=== PATIENT | female | born 1980 | race Caucasian/White ===

== ENCOUNTER 2022-04-29 21:27 | Emergency (ER) | payer OTHER ==
[~2022-04-29] VITALS: Ht 149.9 cm; Wt 77.1 kg
--- NOTE | 2022-04-29 22:08 | NUR ---
DR Goldman in room. MSE in progress
--- NOTE | 2022-04-29 22:09 | NUR ---
Pt provided urine sample, sent to lab.
[2022-04-29 22:21] LABS: *BILIRUBIN,URIN NEGATIVE (NEGATIVE); *BLOOD, URINE NEGATIVE (NEGATIVE); *COLOR,URINE YELLOW (YELLOW); *KETONES,URINE NEGATIVE (NEGATIVE); *UROBILINOGEN,URINE 0.2 E.U./dl (NORMAL); LEUKOCYTE ESTERASE ,URINE NEGATIVE (NEGATIVE); NITRITE, URINE NEGATIVE (NEGATIVE); PH,URINE 5.5 (5.0-8.0); UGLUCOSE NEGATIVE (NEGATIVE)
[2022-04-29 22:28] LABS: *CLARITY,URINE HAZY (CLEAR); BACTERIA,URINE FEW /HPF (NONE SEEN); RBC,URINE 0-3 /HPF (0-3); SQUAMOUS EPITHELIAL CELL,UR MANY /HPF (NONE SEEN)
[2022-04-29 22:29] LABS: *URINE HCG, QUAL NEGATIVE (NEGATIVE)
[2022-04-29] MEDS ORDERED: DICYCLOMINE HCL LIQ 10 MG/5 ML UDC PO ONE (22:30)
[2022-04-29] MEDS ORDERED: ONDANSETRON ODT 4 MG TAB.RAPDIS SL ONE (22:30)
[2022-04-29] MEDS ORDERED: DICYCLOMINE HCL LIQ 10 MG/5 ML UDC ONE (22:30)
[2022-04-29] MEDS ORDERED: ONDANSETRON ODT 4 MG TAB.RAPDIS ONE (22:30)
[2022-04-29 22:35] LABS: HEMATOCRIT 36.4 % (31.2-41.9); MEAN CORPUSCULAR HEMOGLOBIN 28.4 uug (24.7-32.8); MEAN CORPUSCULAR VOLUME 85.1 fL (75.5-95.3); PLATELET COUNT (AUTO) 310 K/uL (179-408)
--- NOTE | 2022-04-29 22:38 | NUR ---
offered medicine as ordered pt declined at this time.
[2022-04-29 22:49] LABS: BILIRUBIN,TOTAL 0.4 mg/dL (0.2-1.0); CREATININE 0.9 mg/dL (0.6-1.3)
--- NOTE | 2022-04-29 23:01 | NUR ---
sheet metal technician is at the bedside.
[2022-04-29] MEDS ORDERED: DICY20TA11 PO (23:34)
[2022-04-29] MEDS ORDERED: ONDA4TAB5 PO (23:34)
--- NOTE | 2022-04-29 23:41 | NUR ---
Patient discharged to home in stable condition. Written and verbal after care instructions given. Patient verbalizes understanding of instructions. Stressed follow up or return to ER for worsening s/s. Patient is a/ox4, NAD noted. Patient is accompanied by SO
[2022-04-29 23:42] VITALS: BP 123/72
== END 2022-04-29 23:42 | disposition home or self-care (01) ==
LOC: ER 21:27
DX: R10.2 Pelvic and perineal pain (principal); E05.90 Thyrotoxicosis, unspecified without thyrotoxic crisis or storm
CPT/HCPCS: 36415; 76856; 83690; 84703; 85025; Q0162